=== PATIENT | female | born 1930 | race African-American/Black ===

== ENCOUNTER 2017-08-11 15:05 | Emergency (ER) | payer MEDICARE ==
[~2017-08-11] VITALS: Ht 162.6 cm; Wt 70.0 kg
[2017-08-11] MEDS ORDERED: SODIUM CHLORIDE FLUSH 10ML SYR IVF ONE (16:30)
[2017-08-11 16:33] LABS: BASOPHILS # (AUTO) 0.01 x10^3/uL (0-0.1); BASOPHILS % (AUTO) 0 % (0-1); EOSINOPHILS # (AUTO) 0.06 x10^3/uL (0-0.4); EOSINOPHILS % (AUTO) 1 % (1-7); LYMPHOCYTES # (AUTO) 1.74 x10^3/uL (1-3.4); LYMPHOCYTES % (AUTO) 26 % (22-44); MD NO; MEAN CORPUSCULAR HEMOGLOBIN 29.6 pg (27.0-34.8); MEAN CORPUSCULAR HGB CONC 32.5 g/dL (32.4-35.8); MEAN PLATELET VOLUME 8.6 fL (7.4-10.4); MONOCYTES # (AUTO) 0.34 x10^3/uL (0.2-0.8); MONOCYTES % (AUTO) 5 % (2-9); NEUTROPHILS # (AUTO) 4.52 x10^3/uL (1.8-6.8); NEUTROPHILS % (AUTO) 68 % (42-75); PLATELET COUNT 287 x10^3/uL (130-400); RED CELL DISTRIBUTION WIDTH 14.4 % (9.6-15.2)
[2017-08-11 16:42] LABS: D-DIMER 2.4 ug/mlFEU (0.00-0.52); PROTHROMBIN TIME 10.3 Seconds (9.6-11.5)
[2017-08-11 16:43] LABS: ALBUMIN 2.6 g/dL (3.4-5.0); ANION GAP 5 mmol/L (5-15); CALCIUM 8.8 mg/dL (8.5-10.1); CHLORIDE 97 mmol/L (98-107); CREATININE 0.94 mg/dL (0.55-1.02)
[2017-08-11 18:34] VITALS: BP 139/68
== END 2017-08-11 18:52 | disposition left against medical advice (07) ==
LOC: ED 18:00
DX: R07.89 Other chest pain (principal); E11.9 Type 2 diabetes mellitus without complications
CPT/HCPCS: 36415; 71010; 80048; 82040; 83880; 84484; 85025; 85379; 85610; 85730; 93005; 99285